=== PATIENT | male | born 1980 | race Caucasian/White ===

== ENCOUNTER 2017-11-17 15:25 | Emergency (ER) | payer MEDICAID ==
[~2017-11-17] VITALS: Ht 167.6 cm; Wt 69.8 kg
[2017-11-17 15:26] VITALS: BP 143/87
[2017-11-17] MEDS ORDERED: LIDOCAINE 1%, 10ML INFIL ONE (16:00)
[2017-11-17] MEDS ORDERED: LIDOCAINE-MPF 1%, 5ML ONE ×2 (17:03→17:04)
== END 2017-11-17 17:18 | disposition home or self-care (01) ==
LOC: ED 17:00
DX: K08.89 Other specified disorders of teeth and supporting structures (principal)
CPT/HCPCS: 99283